=== PATIENT | female | born 1990 ===

== ENCOUNTER 2017-06-16 12:46 | Emergency (ER) | payer MEDICAID ==
[2017-06-16] MEDS ORDERED: Sodium Chloride 0.9% 1,000 ML IV STA (13:49)
[2017-06-16] MEDS ORDERED: Iohexol 240 (50 ml) PO ONE (13:49)
--- NOTE | 2017-06-16 14:11 | ED PDOC ---
HPI: Abdomen Time Seen by Provider: 06/16/17 12:56 Chief Complaint (Nursing): Abdominal Pain Chief Complaint (Provider): Abdominal pain, vomiting, diarrhea History Per: Patient History/Exam Limitations: no limitations Onset/Duration Of Symptoms: Days (2) Outside of [place] travel?: No Current Symptoms Are (Timing): Still Present Location Of Pain/Discomfort: Diffuse Quality Of Discomfort: Sharp, Cramping Associated Symptoms: Nausea, Vomiting, Diarrhea, Loss Of Appetite. denies: Fever, Chills Exacerbating Factors: None Additional Complaint(s): 26 yo female with no medical problems presents with abdominal pain, diarrhea and vomiting which began yesterday. Pt states she has no fever. Pt vomited x 2 and did not attempt to eat today. Past Medical History Reviewed: Historical Data, Nursing Documentation, Vital Signs Vital Signs: Last Vital Signs Temp 97 F L 06/16/17 12:54 Pulse 99 H 06/16/17 12:54 Resp 16 06/16/17 12:54 BP 133/72 06/16/17 12:54 Pulse Ox 97 06/16/17 14:11 - Medical History PMH: No Chronic Diseases - Surgical History Surgical History: No Surg Hx - Family History Family History: States: No Known Family Hx - Living Arrangements Living Arrangements: With Family - Home Medications Home Medications: Ambulatory Orders Medication Instructions Recorded Ciprofloxacin [Cipro] 500 mg PO BID #20 tab 06/16/17 Ondansetron ODT [Zofran ODT] 4 mg PO QID #20 odt 06/16/17 metroNIDAZOLE [Flagyl] 500 mg PO TID #30 tab 06/16/17 - Allergies Allergies/Adverse Reactions: Allergies Allergy/AdvReac Type Severity Reaction Status Date / Time clindamycin Allergy RASH Verified 06/16/17 12:54 Penicillins Allergy RASH Verified 06/16/17 12:54 Review of Systems ROS Statement: Except As Marked, All Systems Reviewed And Found Negative Constitutional: Negative for: Fever, Chills Gastrointestinal: Positive for: Nausea, Vomiting, Abdominal Pain, Diarrhea Physical Exam - Reviewed Nursing Documentation Reviewed: Yes Vital Signs Reviewed: Yes - Physical Exam Appears: Positive for: Well, Non-toxic, No Acute Distress Head Exam: Positive for: ATRAUMATIC, NORMAL INSPECTION, NORMOCEPHALIC Skin: Positive for: Normal Color, Warm, DRY Eye Exam: Positive for: Normal appearance ENT: Positive for: Normal ENT Inspection Neck: Positive for: Normal, Painless ROM Cardiovascular/Chest: Positive for: Regular Rate, Rhythm Respiratory: Positive for: Normal Breath Sounds. Negative for: Accessory Muscle Use, Respiratory Distress Gastrointestinal/Abdominal: Positive for: Soft, Tenderness (RLQ). Negative for : Normal Exam Back: Positive for: Normal Inspection Extremity: Positive for: Normal ROM Neurologic/Psych: Positive for: Alert, Oriented - Laboratory Results Result Diagrams: 06/16/17 14:00 06/16/17 14:00 - ECG O2 Sat by Pulse Oximetry: 97 Medical Decision Making Medical Decision Making: Colitis seen on abdominal CT. PT reports feeling better on re-evaluation. PT given IV antibiotics in ER Disposition - Clinical Impression Clinical Impression: Colitis - Patient ED Disposition Is Patient to be Admitted: No Counseled Patient/Family Regarding: Diagnosis, Need For Followup, Rx Given - Disposition Referrals: Phyllis Short MD [Medical Doctor] - Disposition: Routine/Home Disposition Time: 19:04 Condition: STABLE Prescriptions: Ciprofloxacin [Cipro] 500 mg PO BID #20 tab metroNIDAZOLE [Flagyl] 500 mg PO TID #30 tab Ondansetron ODT [Zofran ODT] 4 mg PO QID #20 odt Instructions: Diarrhea in Adolescents and Adults Forms: [facility] (Yoruba), [facility] ED School/Work Excuse
[2017-06-16 14:21] LABS: BASO % 0.5 % (0.0-2.0); EOS # 0.1 K/uL (0.0-0.7); HEMOGLOBIN 14.5 g/dL (12.0-16.0); LYMPH # 1.1 K/uL (1.0-4.3); LYMPH % 16.8 % (20.0-40.0); MEAN CORPUSCULAR HEMOGLOBIN 33.1 pg (27.0-31.0); MEAN CORPUSCULAR HGB CONC 35.2 g/dL (33.0-37.0); MEAN PLATELET VOLUME 7.6 fl (7.2-11.7); MONO # 0.6 K/uL (0.0-0.8); NEUT # 4.8 K/uL (1.8-7.0); NEUT % 71.7 % (50.0-75.0); NRBC % 0.1 % (0.0-0.0); RBC 4.38 Mil/uL (3.80-5.20); RED CELL DISTRIBUTION WIDTH 12.2 % (11.5-14.5); WHITE BLOOD COUNT 6.6 K/uL (4.8-10.8)
[2017-06-16 14:34] LABS: ALBUMIN 3.8 g/dL (3.5-5.0); ALT/SGPT 48 U/L (9-52); AST/SGOT 25 U/L (14-36); BLOOD UREA NITROGEN 9 mg/dl (7-17); CALCIUM 8.7 mg/dL (8.4-10.2); GFR AFRICAN-AMERICAN > 60; GFR NON-AFRICAN AMERICAN > 60
[2017-06-16] MEDS ORDERED: Iohexol 240 (50 ml) ONE (14:34)
[2017-06-16] MEDS ORDERED: Sodium Chloride 0.9% 100 ML ONE (15:53)
[2017-06-16] MEDS ORDERED: Iohexol 300 100 ML IJ ONE (15:53)
--- NOTE | 2017-06-16 17:35 | CT ---
PROCEDURE: CT Abdomen and Pelvis with contrast HISTORY: RLQ pain, diarrhea, vomiting COMPARISON: None. TECHNIQUE: Following oral and intravenous contrast administration, a CT examination of the abdomen and pelvis performed from the domes of the diaphragms to the symphysis pubis with reformatted datasets provided not only axial but also sagittal and coronal series. Contrast dose: Omnipaque 300, 80 cc Radiation dose: Total exam DLP = 232.97 mGy-cm. This CT exam was performed using one or more of the following dose reduction techniques: Automated exposure control, adjustment of the mA and/or kV according to patient size, and/or use of iterative reconstruction technique. FINDINGS: LOWER THORAX: Unremarkable. LIVER: Unremarkable. No gross lesion or ductal dilatation. GALLBLADDER AND BILE DUCTS: Unremarkable. PANCREAS: Unremarkable. No gross lesion or ductal dilatation. SPLEEN: Unremarkable. ADRENALS: Unremarkable. No mass. Left hemicolon and there is fluid at the rectus KIDNEYS AND URETERS: Unremarkable. No hydronephrosis. No solid mass. VASCULATURE: Unremarkable. No aortic aneurysm. BOWEL: Unremarkable. No obstruction. Mural thickening is not excluded at the rectal vault. Consider potential segmental colitis affecting the transverse and left hemicolon segments however the colon is collapsed and difficult to evaluate. No pericolic reaction or fluid collection related. APPENDIX: Normal appendix. PERITONEUM: Unremarkable. No free fluid. No free air. LYMPH NODES: Unremarkable. No enlarged lymph nodes. BLADDER: Unremarkable. REPRODUCTIVE: Unremarkable. BONES: No acute fracture. OTHER FINDINGS: None. IMPRESSION: Findings suspicious for but not conclusive of segmental colitis affecting the transverse and left hemicolon. Consider infectious or inflammatory causes ischemia or, less likely neoplasm. Limited fluid in the rectum concordant with clinical history of diarrhea. No bowel obstruction appreciable.
[2017-06-16] MEDS ORDERED: Ciprofloxacin IV 400 MG in Sodium Chloride 0.9% 250 ML IV STA (17:49)
[2017-06-16] MEDS ORDERED: metroNIDAZOLE 500mg/100ml NS 100 ML IV ONE (17:49)
[2017-06-16] MEDS ORDERED: Ciprofloxacin 400mg/200ml D5W 400 MG/200 ML BAG IVPB SCH (18:00)
[2017-06-16] MEDS ORDERED: metroNIDAZOLE 500mg/100ml NS 100 ML IVPB ONE (18:34)
[2017-06-16] MEDS ORDERED: Ciprofloxacin 400mg/200ml D5W 400 MG/200 ML BAG IVPB ONE (19:50)
[2017-06-16 20:14] VITALS: BP 100/56; PULSE 71; RESP 18; TEMP 98.2; O2SAT 100
== END 2017-06-16 20:58 | disposition home or self-care (01) ==
LOC: H.ER 12:46
DX: K52.9 Noninfective gastroenteritis and colitis, unspecified (principal); Z88.0 Allergy status to penicillin
CPT/HCPCS: 74177; 80053; 81025; 85025; 96361; 96365; 96375; 99284; J0744; J7040; Q9966; Q9967

== ENCOUNTER 2018-01-15 16:42 | Inpatient (IN) | payer MEDICAID ==
[2018-01-15] MEDS ORDERED: Iohexol 240 (50 ml) PO ONE (17:24)
--- NOTE | 2018-01-15 17:26 | ED PDOC ---
HPI: Abdomen Additional Complaint(s): Pt seen and examined at bedside with attending. Seen @ [facility] 12/30/2017 for UTI and completed treatment for UTI. 27F no PMH or abdominal surgeries p/w acute onset of non-radiating jhonathan- umbilical pain with decrease in appetite, bloating, burping, and minimal flatus being passed. She denies any fevers, chills, nausea, diarrhea, vaginal discharge or dysuria. Last meal 1400 (soup) <Dominga Evangelista - Last Filed: 01/15/18 18:57> <Leigh Thorne - Last Filed: 01/17/18 11:49> Time Seen by Provider: 01/15/18 16:57 Chief Complaint (Nursing): Abdominal Pain Supervising Attending Note - Supervising Attending Note The Documented history was done by the: Physician Tutoring Assistant, Attending Physician The documented physical exam was done by the: Physician Tutoring Assistant, Attending Physician - Attestation: I have personally seen and examined this patient.: Yes I have fully participated in the care of the patient.: Yes I have reviewed all pertinent clinical information: Yes <Leigh Thorne - Last Filed: 01/17/18 11:49> Past Medical History Vital Signs: Last Vital Signs Temp 36.8 C 01/15/18 16:48 Pulse 103 H 01/15/18 16:48 Resp 16 01/15/18 16:48 BP 107/75 01/15/18 16:48 Pulse Ox 97 01/15/18 16:48 - Medical History PMH: No Chronic Diseases - Family History Family History: States: Unknown Family Hx <Dominga Evangelista - Last Filed: 01/15/18 18:57> Vital Signs: Last Vital Signs Temp 98.2 F 01/15/18 16:48 Pulse 103 H 01/15/18 16:48 Resp 16 01/15/18 16:48 BP 107/75 01/15/18 16:48 Pulse Ox 97 01/15/18 18:57 <Leigh Thorne - Last Filed: 01/17/18 11:49> - Home Medications Home Medications: Ambulatory Orders Medication Instructions Recorded RX: No Known Home Med 01/16/18 - Allergies Allergies/Adverse Reactions: Allergies Allergy/AdvReac Type Severity Reaction Status Date / Time clindamycin Allergy RASH Verified 01/16/18 00:11 Penicillins Allergy RASH Verified 01/16/18 00:11 Review of Systems ROS Statement: Except As Marked, All Systems Reviewed And Found Negative Gastrointestinal: Positive for: Abdominal Pain Genitourinary Female: Negative for: Dysuria <OtisDominga sol - Last Filed: 01/15/18 18:57> Physical Exam - Reviewed Vital Signs Reviewed: Yes - Physical Exam Appears: Positive for: Non-toxic Head Exam: Positive for: ATRAUMATIC Skin: Positive for: Normal Color, Warm, Dry Eye Exam: Positive for: Normal appearance, EOMI ENT: Positive for: Normal ENT Inspection Neck: Positive for: Supple Cardiovascular/Chest: Positive for: Tachycardia. Negative for: Murmur Respiratory: Positive for: Normal Breath Sounds. Negative for: Crackles, Rales, Wheezing Gastrointestinal/Abdominal: Positive for: Bowel Sounds (hypoactive), Soft, Tenderness (diffusely tender, Rovsing's positive), Distended (mildly), Guarding (voluntary). Negative for: Rebound Extremity: Positive for: Normal ROM Lymphatic: Negative for: Adenopathy Neurologic/Psych: Positive for: Alert, Oriented <TonjaDominga - Last Filed: 01/15/18 18:57> - Laboratory Results Result Diagrams: 01/15/18 17:35 01/15/18 17:35 - ECG O2 Sat by Pulse Oximetry: 97 <OtisswetaDominga - Last Filed: 01/15/18 18:57> - Laboratory Results Result Diagrams: 01/16/18 06:30 01/16/18 10:46 <Leigh Thorne - Last Filed: 01/17/18 11:49> Medical Decision Making Medical Decision Making: Appendicitis vs. ovarian cyst vs. ovarian torsion vs. IBD - CBC, CMP, PT/INR, PTT, U dip/U preg, - CT abd/pelvis, TV ultrasound - NPO/IVF - Morphine CBC shows mild leukocytosis and left shift. CMP grossly WNL Coags WNL U dip: negative U preg: negative <TonjaDominga - Last Filed: 01/15/18 18:57> Medical Decision Makin US Obstetrical FINDINGS: UTERUS: Unremarkable. No myometrial mass. measures 5.3 x 2.7 x 3.9 cm. ENDOMETRIUM: 9 mm and unremarkable. CERVIX: Closed. Unremarkable. OVARIES: Unremarkable. No mass. right ovary measures 2.4 x 1.8 x 2.7 cm and left ovary 2.3 x 1.8 x 1.5 cm. there is a 2 mm echogenic focus within the left ovary, possibly a calcification. FREE FLUID: No free fluid. IMPRESSION: Examination within normal limits. 2039 CT Abdomen/Pelvis FINDINGS: LUNG BASES: The lung bases appear clear. No pleural effusions are seen. LIVER: Unremarkable. GALLBLADDER AND BILE DUCTS: The gallbladder appears within normal limits. No radioopaque gallstones are seen. No biliary ductal dilatation is evident. PANCREAS: Unremarkable. SPLEEN: Unremarkable. ADRENAL GLANDS: Unremarkable. KIDNEYS, URETERS, AND BLADDER: The kidneys appear within normal limits. There is no hydronephrosis or hydroureter. No urinary calculi are seen. STOMACH AND BOWEL: Unremarkable appearance of the stomach and bowel. No evidence of bowel obstruction. No evidence suggesting enteritis or colitis. APPENDIX: Mild dilatation of the appendix to 8 mm. Early acute appendicitis is not excluded. PERITONEUM: No free fluid. No free air. LYMPH NODES: No lymphadenopathy is evident. VASCULATURE: No evidence of abdominal aortic aneurysm. BONES: No aggressive appearing osseous lesion. No acute osseous pathology evident. IMPRESSION: Mild dilatation of the appendix to 8 mm. Early acute appendicitis is not excluded. Patient informed of CT findings and expresses understanding. 2100 Case discussed with surgical garment assembly supervisor; Dr. Abdi on surgical consult. Patient to be evaluated in ER by surgical garment assembly supervisor Dr. Paige Sherwood. [address] Stevenson, patient to be admitted under his service. Scribe Attestation: Documented by Lorena Quarles, acting as a scribe for Leigh Thorne MD. Provider Scribe Attestation: All medical record entries made by the Scribe were at my direction and personally dictated by me. I have reviewed the chart and agree that the record accurately reflects my personal performance of the history, physical exam, medical decision making, and the department course for this patient. I have also personally directed, reviewed, and agree with the discharge instructions and disposition. <Leigh Thorne - Last Filed: 01/17/18 11:49> Disposition - Patient ED Disposition Is Patient to be Admitted: Transfer of Care Discussed With DrPrabhu: Leigh Thorne Doctor Will See Patient In The: Hospital Counseled Patient/Family Regarding: Need For Followup - Disposition Disposition Time: 18:53 <Dominga Evangelista - Last Filed: 01/15/18 18:57> Counseled Patient/Family Regarding: Studies Performed, Diagnosis - Disposition Disposition Time: 22:00 - Pt Status Changed To: Hospital Disposition Of: Inpatient - Admit Certification Admit to Inpatient:: After my assessment, the patient will require hospitalization for at least two midnights. This is because of the severity of symptoms shown, intensity of services needed, and/or the medical risk in this patient being treated as an outpatient. - POA Present On Arrival: None <Leigh Thorne - Last Filed: 01/17/18 11:49> - Clinical Impression Clinical Impression: Appendicitis - Disposition Condition: FAIR
[2018-01-15] MEDS ORDERED: Iohexol 240 (50 ml) ONE (17:30)
[2018-01-15] MEDS ORDERED: Sodium Chloride 0.9% 1,000 ML IV STA (17:32)
[2018-01-15] MEDS ORDERED: Morphine 4 MG/ML VIAL ONE ×3 (17:41→22:09)
[2018-01-15 17:53] LABS: BASO # 0.1 K/uL (0.0-0.2); BASO % 0.4 % (0.0-2.0); EOS # 0.1 K/uL (0.0-0.7); EOS % 1.1 % (0.0-4.0); HEMOGLOBIN 12.9 g/dL (12.0-16.0); LYMPH # 1.6 K/uL (1.0-4.3); LYMPH % 12.8 % (20.0-40.0); MEAN CELL VOLUME 95.2 fl (81.0-99.0); MEAN CORPUSCULAR HEMOGLOBIN 31.5 pg (27.0-31.0); MEAN PLATELET VOLUME 7.8 fl (7.2-11.7); MONO % 7.7 % (0.0-10.0); RBC 4.11 Mil/uL (3.80-5.20); RED CELL DISTRIBUTION WIDTH 12.1 % (11.5-14.5); WHITE BLOOD COUNT 12.8 K/uL (4.8-10.8)
[2018-01-15 17:58] LABS: INR 1.1; PROTHROMBIN TIME 12.4 Seconds (9.8-13.1)
[2018-01-15 18:01] LABS: PARTIAL THROMBOPLASTIN TIME 31.1 Seconds (25.6-37.1)
[2018-01-15 18:05] LABS: ALB/GLOB RATIO 1.1 (1.0-2.1); ALBUMIN 4.1 g/dL (3.5-5.0); ALT/SGPT 38 U/L (9-52); AST/SGOT 29 U/L (14-36); BLOOD UREA NITROGEN 8 mg/dl (7-17); CALCIUM 8.7 mg/dL (8.4-10.2); GFR NON-AFRICAN AMERICAN > 60
[2018-01-15] MEDS ORDERED: Ciprofloxacin 400mg/200ml D5W 400 MG/200 ML BAG IVPB STA (18:46)
[2018-01-15] MEDS ORDERED: Iohexol 300 100 ML IJ ONE (18:50)
[2018-01-15] MEDS ORDERED: Sodium Chloride 0.9% 50 ML IV ONE (18:51)
[2018-01-15] MEDS ORDERED: metroNIDAZOLE 500mg/100ml NS 100 ML IVPB SCH (19:00)
[2018-01-15] MEDS ORDERED: metroNIDAZOLE 500mg/100ml NS 100 ML IVPB ONE (19:21)
[2018-01-15] MEDS ORDERED: Ciprofloxacin 400mg/200ml D5W 400 MG/200 ML BAG IVPB ONE (19:22)
--- NOTE | 2018-01-15 19:31 | US ---
Date of service: 01/15/2018 HISTORY: severe abd pain COMPARISON: None available. TECHNIQUE: Endovaginal ultrasound examination of the pelvis. FINDINGS: UTERUS: Measures 5.3 x 3.9 x 2.7 cm. Retroverted uterus normal in size and appearance. No fibroid or other mass lesion seen. ENDOMETRIUM: Measures 8.5 mm in diameter. 8.5 CERVIX: No cervical abnormality identified. RIGHT OVARY: Measures 2.4 x 2.7 x 1.8 cm. No solid mass. Normal flow. LEFT OVARY: Measures 2.3 x 1.5 x 1.8 cm. No solid mass. Normal flow. There is small echogenic focus in the left ovary measures 0.2 x 0.23 x 0.2 centimeter may represent small calcification FREE FLUID: No significant free fluid noted. OTHER FINDINGS: None. IMPRESSION: No evidence of acute pathology. Retroverted uterus. Prominent follicles in both ovaries. Blood flow appreciated at both ovaries.
[2018-01-15] MEDS ORDERED: Morphine 4 MG/ML VIAL IVP STA (20:38)
--- NOTE | 2018-01-15 21:57 | CP.PCM.CON ---
History of Present Illness - History of Present Illness History of Present Illness: General Surgery Consult note for Dr. Abdi consulted for Appendicitis Patient is a 27 yr old female with no PMH who presents to [facility] ED with periumbilical abdominal pain and nausea since 2 am this morning. She describes the pain as constant, sharp and worsened by movement. LNMP 01/06 on BCP, test negative. She otherwise denies f/c, vomiting, COLMENARES, CP, SOB and extremity pain or weakness. Review of Systems - Review of Systems All systems: reviewed and no additional remarkable complaints except (as per HPI) Past Patient History - Past Social History Smoking Status: Never Smoked - PSYCHIATRIC Hx Substance Use: No Meds Allergies/Adverse Reactions: Allergies Allergy/AdvReac Type Severity Reaction Status Date / Time clindamycin Allergy RASH Verified 06/16/17 12:54 Penicillins Allergy RASH Verified 06/16/17 12:54 - Medications Medications: Current Medications Dextrose/Sodium Chloride (Dextrose 5%-0.9% Ns 500 Ml) 1,000 mls @ 100 mls/hr IV .Q10H WILDER Last Admin: 01/15/18 19:15 Dose: 100 mls/hr Metronidazole (Flagyl 500mg/100ml Ns) 100 mls @ 100 mls/hr IVPB ONCE WILDER; Protocol Last Admin: 01/15/18 19:22 Dose: 100 mls/hr Physical Exam - Constitutional Appears: Well, Toxic, No Acute Distress - Head Exam Head Exam: ATRAUMATIC, NORMOCEPHALIC - Eye Exam Eye Exam: EOMI - ENT Exam ENT Exam: Mucous Membranes Moist - Respiratory Exam Respiratory Exam: NORMAL BREATHING PATTERN - Cardiovascular Exam Cardiovascular Exam: REGULAR RHYTHM - GI/Abdominal Exam GI & Abdominal Exam: Guarding (RLQ and periumbilical), Rebound, Tenderness (RLQ and periumbilical). absent: Distended Additional comments: rovsing sign positive - Extremities Exam Extremities exam: Positive for: pedal pulses present. Negative for: calf tenderness, pedal edema - Back Exam Back exam: absent: CVA tenderness (L), CVA tenderness (R) - Neurological Exam Neurological exam: Alert, Oriented x3 - Psychiatric Exam Psychiatric exam: Normal Affect, Normal Mood - Skin Skin Exam: Dry, Intact, Normal Color, Warm Results - Vital Signs Recent Vital Signs: Last Vital Signs Temp 98.2 F 01/15/18 16:48 Pulse 103 H 01/15/18 16:48 Resp 16 01/15/18 16:48 BP 107/75 01/15/18 16:48 Pulse Ox 97 01/15/18 18:57 - Labs Result Diagrams: 01/15/18 17:35 01/15/18 17:35 Labs: Laboratory Results - last 24 hr 01/15/18 01/15/18 01/15/18 17:35 17:35 17:35 WBC 12.8 H D RBC 4.11 Hgb 12.9 Hct 39.1 MCV 95.2 MCH 31.5 H MCHC 33.0 RDW 12.1 Plt Count 287 MPV 7.8 Neut % (Auto) 78.0 H Lymph % (Auto) 12.8 L Irwin % (Auto) 7.7 Eos % (Auto) 1.1 Baso % (Auto) 0.4 Neut # (Auto) 10.0 H Lymph # (Auto) 1.6 Irwin # (Auto) 1.0 H Eos # (Auto) 0.1 Baso # (Auto) 0.1 PT 12.4 INR 1.1 APTT 31.1 Sodium 139 Potassium 3.6 Chloride 104 Carbon Dioxide 24 Anion Gap 15 BUN 8 Creatinine 0.4 L Est GFR ( Amer) > 60 Est GFR (Non-Af Amer) > 60 Random Glucose 114 H Calcium 8.7 Magnesium 1.8 Total Bilirubin 0.6 AST 29 ALT 38 Alkaline Phosphatase 58 Total Protein 7.7 Albumin 4.1 Globulin 3.6 Albumin/Globulin Ratio 1.1 Assessment & Plan - Assessment and Plan (Free Text) Assessment: 27 yr old female with appendicitis Plan: NPO IVF c/w cipro flagyl repeat labs in am booked for OR tomorrow pain control zofran for nausea tylenol PRN for fever d/w Dr. Trinidad Sherwood, PGY 1 - Date & Time Date: 01/15/18 Time: 21:45
[2018-01-15] MEDS ORDERED: Oxycodone/Acetaminophen 5/325 mg Tab PO PRN (22:01)
[2018-01-15] MEDS ORDERED: Morphine 4 MG/ML VIAL IVP PRN (22:01)
[2018-01-15] MEDS ORDERED: Ciprofloxacin 400mg/200ml D5W 400 MG/200 ML BAG IVPB SCH (22:15)
[2018-01-15] MEDS ORDERED: Ciprofloxacin 200mg/100ml D5W 100 ML IVPB SCH (22:15)
[2018-01-15] MEDS ORDERED: Dextrose 5%/Lactated Ringer's 1,000 ML IV SCH (22:15)
[2018-01-16] MEDS: Dextrose 5%/0.9% NS 1,000 ML IV SCH ×2 (04:07→14:03)
[2018-01-16] MEDS: metroNIDAZOLE 500mg/100ml NS 100 ML IVPB SCH ×2 (04:09→11:27)
[2018-01-16 07:07] LABS: BASO % 0.3 % (0.0-2.0); EOS # 0.3 K/uL (0.0-0.7); EOS % 5.1 % (0.0-4.0); HEMOGLOBIN 11.9 g/dL (12.0-16.0); LYMPH # 2.1 K/uL (1.0-4.3); LYMPH % 30.6 % (20.0-40.0); MEAN CORPUSCULAR HEMOGLOBIN 32.9 pg (27.0-31.0); MEAN CORPUSCULAR HGB CONC 34.3 g/dL (33.0-37.0); MEAN PLATELET VOLUME 8.3 fl (7.2-11.7); MONO # 0.7 K/uL (0.0-0.8); MONO % 10.4 % (0.0-10.0); NEUT # 3.6 K/uL (1.8-7.0); NEUT % 53.6 % (50.0-75.0); RBC 3.6 Mil/uL (3.80-5.20); RED CELL DISTRIBUTION WIDTH 12.3 % (11.5-14.5); WHITE BLOOD COUNT 6.8 K/uL (4.8-10.8)
[2018-01-16 07:20] LABS: INR 1.2; PROTHROMBIN TIME 13.4 Seconds (9.8-13.1)
[2018-01-16 07:23] LABS: PARTIAL THROMBOPLASTIN TIME 31.8 Seconds (25.6-37.1)
[2018-01-16 07:29] LABS: ALB/GLOB RATIO 1.1 (1.0-2.1); ALBUMIN 3.4 g/dL (3.5-5.0); ALT/SGPT 33 U/L (9-52); AST/SGOT 21 U/L (14-36); BLOOD UREA NITROGEN 4 mg/dl (7-17); CALCIUM 8.3 mg/dL (8.4-10.2); GFR NON-AFRICAN AMERICAN > 60
--- NOTE | 2018-01-16 07:57 | CP.PCM.HP ---
History of Present Illness - History of Present Illness History of Present Illness: 27 YR OLD FEMALE ADMITTED BECAUSE OF PERIUMBILICAL PAIN WITH NAUSEA X 1 DAY.SHE WAS DIAGNOSED WITH ACUTE APPENDICITIS AND SCHEDULED FOR SURGERY TODAY.PAST MEDICAL HISTORY OF TONSILLECTOMY AND PCN/CLINDAMYCIN ALLERGY. Present on Admission - Present on Admission Any Indicators Present on Admission: No Past Patient History - Past Medical History & Family History Past Medical History?: No - Past Social History Smoking Status: Never Smoked - CARDIAC Hx Cardiac Disorders: No Hx Angina: No Hx Atrial Fibrillation: No Hx Cardia Arrhythmia: No Hx Circulatory Problems: No Hx Congestive Heart Failure: No Hx Heart Attack: No Hx Heart Murmur: No Hx Heart Transplant: No Hx Hypercholesterolemia: No Hx Hypertension: No Hx Hypotension: No Hx Internal Defibrillator: No Hx Mitral Valve Prolapse: No Hx Pacemaker: No Hx Peripheral Edema: No Hx Peripheral Vascular Disease: No - PULMONARY Hx Respiratory Disorders: No Hx Asthma: No Hx Bronchitis: No Hx Chronic Obstructive Pulmonary Disease (COPD): No Hx Emphysema: No Hx Lung Cancer: No Hx Pneumonia: No Hx Pulmonary Edema: No Hx Pulmonary Embolism: No Hx Respiratory Aspiration: No Hx Respiratory Tract Infection: No Hx Sleep Apnea: No Hx Tuberculosis: No - NEUROLOGICAL Hx Neurological Disorder: No Hx Alzheimer's Disease: No HX Cerebrovascular Accident: No Hx Dementia: No Hx Dizziness: No Hx Meningitis: No Hx Migraine: No Hx Multiple Sclerosis: No Hx Paralysis: No Hx Parkinson's Disease: No Hx Seizures: No Hx Syncope: No Hx Transient Ischemic Attacks (TIA): No Hx Vertigo: No - HEENT Hx HEENT Problems: No Hx Blind: No Hx Cataracts: No Hx Deafness: No Hx Difficulty Chewing: No Hx Epistaxis: No Hx Glaucoma: No Hx Macular Degeneration: No Hx Sinusitis: No Other/Comment: Had Lasik Surgery for vision - RENAL Hx Chronic Kidney Disease: No Hx Dialysis: No Hx Kidney Stones: No Hx Neurogenic Bladder: No Hx Pyelonephritis: No Hx Renal (Kidney) Cancer: No Hx Renal Failure: No - ENDOCRINE/METABOLIC Hx Endocrine Disorders: No Hx Adrenal Cancer: No Hx Diabetes Insipidus: No Hx Diabetes Mellitus Type 1: No Hx Diabetes Mellitus Type 2: No Hx Hyperthyroidism: No Hx Hypothyroidism: No Hx Systemic Lupus Erythematosus: No - HEMATOLOGICAL/ONCOLOGICAL Hx Blood Disorders: No Hx AIDS: No Hx Anemia: No Hx Blood Transfusions: No Hx Blood Transfusion Reaction: No Hx Bruising: No Hx Cancer: No Hx Chemotherapy: No Hx Cirrhosis: No Hx Gum Bleeding: No Hx Hemophilia: No Hx Hepatitis A: No Hx Hepatitis B: No Hx Hepatitis C: No Hx Human Immunodeficiency Virus (HIV): No Hx Leukemia: No Hx Metastesis: No Hx Shingles: No Hx Sickle Cell Disease: No Hx Unexplained Bleeding: No Hx von Willebrand's Disease: No - INTEGUMENTARY Hx Dermatological Problems: No Hx Basil Cell: No Hx Wolf: No Hx Cellulitis: No Hx Eczema: No Hx Melanoma: No Hx Psoriasis: No Hx Squamous Cell: No - MUSCULOSKELETAL/RHEUMATOLOGICAL Hx Musculoskeletal Disorders: No Hx Arthritis: No Hx Back Pain: No Hx Degenerative Joint Disease: No Hx Falls: No Hx Fractures: No Hx Gout: No Hx Herniated Disk: No Hx Myasthenia Gravis: No Hx Osteoarthritis: No Hx Osteomyelitis: No Hx Osteoporosis: No Hx Rhabdomyolysis: No Hx Rheumatoid Arthritis: No Hx Spinal Stenosis: No Hx Unsteady Gait: No - GASTROINTESTINAL Hx Gastrointestinal Disorders: No Hx Bowel Surgery: No Hx Clostridium Difficile: No Hx Colitis: No Hx Colostomy: No Hx Constipation: No Hx Crohn's Disease: No Hx Diarrhea: No Hx Diverticulitis: No Hx Esophageal Varices: No Hx Fatty Liver Disease: No Hx Gall Bladder Disease: No Hx Gastritis: No Hx Gastroesophageal Reflux: No Hx Hemorrhoids: No Hx Ileostomy: No Hx Irritable Bowel: No Hx Liver Failure: No Hx Nausea: No Hx Pancreatitis: No HX Swallowing Problems: No Hx Ulcer: No Hx Vomiting: No - GENITOURINARY/GYNECOLOGICAL Hx Genitourinary Disorders: No Hx Bladder Cancer: No Hx Bladder Stone: No Hx Cervical Cancer: No Hx Hematuria: No Hx Incontinence: No Hx Ovarian Cancer: No Hx Postmenopausal Bleeding: No Hx Reproductive Disorders: No Hx Sexually Transmitted Disorders: No Hx Uterine Cancer: No Hx Urinary Tract Infection: Yes (last month and treated) - PSYCHIATRIC Hx Substance Use: No - SURGICAL HISTORY Hx Surgeries: Yes Hx Abdominal Aortic Aneurysm Repair: No Hx Amputation: No Hx Angiogram: No Hx Angioplasty: No Hx Appendectomy: No Hx Arteriovenous Shunt: No Hx Arthroscopy: No Hx Bile Duct Stent: No Hx Breast Biopsy: No Hx Cataract Extraction: No Hx Cardiac Catheterization: No Hx Carotid Endarterectomy: No Hx Section: No Hx Cholecystectomy: No Hx Coronary Artery Bypass Graft: No Hx Coronary Stent: No Hx Dilation and Curettage: No Hx Eye Surgery: Yes (Lasik Surgery) Hx Femoral-Popliteal Bypass Graft: No Hx Gastric Bypass Surgery: No Hx Herniorrhaphy: No Hx Hysterectomy: No Hx Joint Replacement: No Hx Kidney Transplant: No Hx Liver Transplant: No Hx Mastectomy: No Hx Musculoskeletal Surgery: No Hx Open Heart Surgery: No Hx Open Reduction Internal Fixation: No Hx Orthopedic Surgery: No Hx Parathyroidectomy: No Hx Penile Implant: No Hx Pulmonary Surgery: No Hx Splenectomy: No Hx Thyroidectomy: No Hx Tonsillectomy: Yes Hx Tubal Ligation: No Hx Valve Replacement: No Hx Vascular Surgery: No Hx Vascular Access Device: No - ANESTHESIA Hx Anesthesia: Yes Hx Anesthesia Reactions: No Hx Malignant Hyperthermia: No Has any member of the family had a problem w/ anesthesia?: No Meds Allergies/Adverse Reactions: Allergies Allergy/AdvReac Type Severity Reaction Status Date / Time clindamycin Allergy RASH Verified 01/16/18 00:11 Penicillins Allergy RASH Verified 01/16/18 00:11 Physical Exam - Constitutional Appears: Well, In Acute Distress - Head Exam Head Exam: ATRAUMATIC, NORMAL INSPECTION, NORMOCEPHALIC - Eye Exam Eye Exam: EOMI, Normal appearance, PERRL Pupil Exam: NORMAL ACCOMODATION, PERRL - ENT Exam ENT Exam: Mucous Membranes Moist, Normal Exam - Neck Exam Neck exam: Positive for: Normal Inspection - Respiratory Exam Respiratory Exam: Clear to Auscultation Bilateral, NORMAL BREATHING PATTERN - Cardiovascular Exam Cardiovascular Exam: REGULAR RHYTHM - GI/Abdominal Exam GI & Abdominal Exam: Normal Bowel Sounds, Soft, Tenderness Additional comments: DIFFUSE TENDERNESS WITH RLQ PRONOUNCED TENDERNESS - Rectal Exam Rectal Exam: NORMAL INSPECTION - Extremities Exam Extremities exam: Positive for: normal inspection - Back Exam Back exam: NORMAL INSPECTION - Neurological Exam Neurological exam: Alert, CN II-XII Intact, Normal Gait, Oriented x3, Reflexes Normal - Psychiatric Exam Psychiatric exam: Normal Affect, Normal Mood - Skin Skin Exam: Dry, Intact, Normal Color, Warm Results - Vital Signs Recent Vital Signs: Last Vital Signs Temp 98.1 F 01/16/18 05:38 Pulse 78 01/16/18 05:38 Resp 20 01/16/18 05:38 BP 98/54 L 01/16/18 05:38 Pulse Ox 99 01/16/18 05:38 - Labs Result Diagrams: 01/16/18 06:30 01/16/18 06:30 Labs: Laboratory Results - last 24 hr 01/15/18 01/15/18 01/15/18 17:35 17:35 17:35 WBC 12.8 H D RBC 4.11 Hgb 12.9 Hct 39.1 MCV 95.2 MCH 31.5 H MCHC 33.0 RDW 12.1 Plt Count 287 MPV 7.8 Neut % (Auto) 78.0 H Lymph % (Auto) 12.8 L Yell % (Auto) 7.7 Eos % (Auto) 1.1 Baso % (Auto) 0.4 Neut # (Auto) 10.0 H Lymph # (Auto) 1.6 Yell # (Auto) 1.0 H Eos # (Auto) 0.1 Baso # (Auto) 0.1 PT 12.4 INR 1.1 APTT 31.1 Sodium 139 Potassium 3.6 Chloride 104 Carbon Dioxide 24 Anion Gap 15 BUN 8 Creatinine 0.4 L Est GFR ( Amer) > 60 Est GFR (Non-Af Amer) > 60 Random Glucose 114 H Calcium 8.7 Phosphorus Magnesium 1.8 Total Bilirubin 0.6 AST 29 ALT 38 Alkaline Phosphatase 58 Total Protein 7.7 Albumin 4.1 Globulin 3.6 Albumin/Globulin Ratio 1.1 01/16/18 01/16/18 01/16/18 06:30 06:30 06:30 WBC 6.8 RBC 3.60 L Hgb 11.9 L Hct 34.6 MCV 96.0 MCH 32.9 H MCHC 34.3 RDW 12.3 Plt Count 253 MPV 8.3 Neut % (Auto) 53.6 Lymph % (Auto) 30.6 Yell % (Auto) 10.4 H Eos % (Auto) 5.1 H Baso % (Auto) 0.3 Neut # (Auto) 3.6 Lymph # (Auto) 2.1 Yell # (Auto) 0.7 Eos # (Auto) 0.3 Baso # (Auto) 0.0 PT 13.4 H INR 1.2 APTT 31.8 Sodium 140 Potassium 3.3 L Chloride 108 H Carbon Dioxide 24 Anion Gap 11 BUN 4 L Creatinine 0.5 L Est GFR ( Amer) > 60 Est GFR (Non-Af Amer) > 60 Random Glucose 107 H Calcium 8.3 L Phosphorus 3.6 Magnesium 1.8 Total Bilirubin 0.4 AST 21 ALT 33 Alkaline Phosphatase 49 Total Protein 6.6 Albumin 3.4 L Globulin 3.2 Albumin/Globulin Ratio 1.1 Assessment & Plan - Assessment and Plan (Free Text) Assessment: ACUTE APPENDICITIS HYPOKALEMIA Plan: IV KCL MEDICALLY CLEARED FOR SURGERY - Date & Time Date: 01/16/18 Time: 08:00
[2018-01-16] MEDS ORDERED: Potassium CL 10 MEQ/50 ML 50 ML IVPB ONE (08:00)
[2018-01-16 11:08] LABS: BLOOD UREA NITROGEN 4 mg/dl (7-17); CALCIUM 8.3 mg/dL (8.4-10.2); GFR NON-AFRICAN AMERICAN > 60
--- NOTE | 2018-01-16 13:27 | CT ---
Date of service: 01/15/2018 PROCEDURE: CT Abdomen and Pelvis with contrast HISTORY: abdominal pain COMPARISON: 06/16/2017 TECHNIQUE: Contrast dose: 85 mL Omnipaque 300 Radiation dose: Total exam DLP = 220.24 mGy-cm. This CT exam was performed using one or more of the following dose reduction techniques: Automated exposure control, adjustment of the mA and/or kV according to patient size, and/or use of iterative reconstruction technique. FINDINGS: LOWER THORAX: Unremarkable. LIVER: Normal size, contour and attenuation. There is a circumscribed region of low attenuation in the medial segment of the left hepatic lobe abutting the fissure for the ligamentum teres. This is a normal variant due to variant venous drainage. No mass. No biliary dilatation. GALLBLADDER AND BILE DUCTS: Unremarkable. PANCREAS: Unremarkable. No gross lesion or ductal dilatation. SPLEEN: Unremarkable. ADRENALS: Unremarkable. No mass. KIDNEYS AND URETERS: Unremarkable. No hydronephrosis. No solid mass. VASCULATURE: Unremarkable. No aortic aneurysm. No aortic atherosclerotic calcification or mural plaque present. BOWEL: No bowel obstruction. APPENDIX: The appendix is distended with fluid demonstrates thickened enhancing hardwick. It measures up to 8 mm in diameter. There is stranding of the adjacent fat at the base of the appendix and adjacent to the cecum on series 3, images 96 through 103. Findings consistent with acute appendicitis. No periappendiceal abscess. No free intraperitoneal air.. PERITONEUM: Trace fluid in the pelvis. No pneumoperitoneum LYMPH NODES: Unremarkable. No enlarged lymph nodes. BLADDER: Unremarkable. REPRODUCTIVE: Normal uterus. BONES: No acute fracture. OTHER FINDINGS: None. IMPRESSION: Findings consistent with acute uncomplicated appendicitis. No periappendiceal abscess or free intraperitoneal air. No other significant abnormality. The preliminary findings for this examination were reported by [facility] at 8:34 p.m. on 01/15/2018. There is concurrence of this report with the preliminary findings.
[2018-01-16] MEDS ORDERED: Propofol 10 mg/ml Inj (20 ML) ONE (14:19)
[2018-01-16] MEDS ORDERED: Midazolam 2 MG/2 ML VIAL ONE (14:19)
[2018-01-16] MEDS ORDERED: Neostigmine 1:1000 (1 mg/ml) Inj ONE (14:20)
[2018-01-16] MEDS ORDERED: Lidocaine 4% (Laryng-O-Jet) Kit MM ONE (14:20)
[2018-01-16] MEDS ORDERED: Succinylcholine 200 mg/10 ml Inj IV ONE (14:20)
[2018-01-16] MEDS ORDERED: Rocuronium 10 mg/ml (5 ml) ONE (14:20)
[2018-01-16] MEDS ORDERED: Lidocaine 1% Inj (20ml) ONE (14:45)
[2018-01-16] MEDS ORDERED: Bupivacaine 0.5% Inj(30mL) ONE (14:45)
[2018-01-16] MEDS ORDERED: Lactated Ringer's 1,000 ML IV ONE (15:12)
[2018-01-16] MEDS ORDERED: Dexamethasone 4 mg/1 ml ONE (15:23)
[2018-01-16] MEDS ORDERED: Cellulose Hemostat 2X3 Sheet TP ONE (16:04)
[2018-01-16] MEDS ORDERED: Oxycodone/Acetaminophen 5/325 mg Tab PO PRN (16:33)
--- NOTE | 2018-01-16 16:40 | PCM.SURG1 ---
Surgeon's Initial Post Op Note - Surgeon's Notes Surgeon: Trinidad Sash Finisher: Isabella PGY4, Maverick PGY3 Type of Anesthesia: General Endo, Local Pre-Operative Diagnosis: Acute appendicitis Operative Findings: Acutely inflamed appendix Post-Operative Diagnosis: same Operation Performed: Laparoscopic appendectomy Specimen/Specimens Removed: Appendix Estimated Blood Loss: EBL {In ML}: 10 Blood Products Given: N/A Drains Used: No Drains Post-Op Condition: Good Date of Surgery/Procedure: 01/16/18 Time of Surgery/Procedure: 16:40
[2018-01-16] MEDS ORDERED: Dexamethasone 4 mg/1 ml IVP PRN (16:41)
[2018-01-16] MEDS ORDERED: HYDROmorphone 0.5 mg/0.5 ml ISec IVP PRN (16:41)
[2018-01-16] MEDS ORDERED: Sodium Chloride 0.9% 1,000 ML IV SCH (16:45)
[2018-01-16] MEDS ORDERED: Lactated Ringer's 1,000 ML IV SCH (16:45)
[2018-01-17 05:08] VITALS: O2SAT 98
--- NOTE | 2018-01-17 09:41 | CP.PCM.PN ---
Subjective - Date & Time of Evaluation Date of Evaluation: 01/17/18 Time of Evaluation: 09:41 - Subjective Subjective: S/P APPENDECTOMY PASSING GAS TOLERATING REGULAR DIET STILL HAS SOME ABDOMINAL PAINS Objective - Vital Signs/Intake and Output Vital Signs (last 24 hours): Temp Pulse Resp BP Pulse Ox 97.9 F 74 20 102/65 98 01/17/18 05:00 01/17/18 05:00 01/17/18 05:00 01/17/18 05:00 01/17/18 05:00 Intake and Output: 01/17/18 01/17/18 06:59 18:59 Intake Total 2400 Balance 2400 - Medications Medications: Current Medications Sodium Chloride (Sodium Chloride 0.9%) 1,000 mls @ 75 mls/hr IV .[id number] WILDER Stop: 01/17/18 16:41 Last Admin: 01/17/18 05:21 Dose: 75 mls/hr Lactated Ringer's (Lactated Ringer's) 1,000 mls @ 100 mls/hr IV .Q10H WILDER - Labs Labs: 01/16/18 06:30 01/16/18 10:46 PT 13.4 Seconds (9.8-13.1) H 01/16/18 06:30 INR 1.2 01/16/18 06:30 APTT 31.8 Seconds (25.6-37.1) 01/16/18 06:30 - Constitutional Appears: No Acute Distress - Head Exam Head Exam: ATRAUMATIC, NORMAL INSPECTION, NORMOCEPHALIC - Eye Exam Eye Exam: EOMI, Normal appearance, PERRL Pupil Exam: NORMAL ACCOMODATION, PERRL - ENT Exam ENT Exam: Mucous Membranes Moist, Normal Exam - Neck Exam Neck Exam: Full ROM, Normal Inspection. absent: Lymphadenopathy - Respiratory Exam Respiratory Exam: Clear to Ausculation Bilateral, NORMAL BREATHING PATTERN - Cardiovascular Exam Cardiovascular Exam: REGULAR RHYTHM, +S1, +S2. absent: Murmur - GI/Abdominal Exam GI & Abdominal Exam: Soft, Tenderness, Normal Bowel Sounds - Rectal Exam Rectal Exam: NORMAL INSPECTION - Extremities Exam Extremities Exam: Full ROM, Normal Capillary Refill, Normal Inspection. absent: Joint Swelling, Pedal Edema - Back Exam Back Exam: NORMAL INSPECTION - Neurological Exam Neurological Exam: Alert, Awake, CN II-XII Intact, Normal Gait, Oriented x3 - Psychiatric Exam Psychiatric exam: Normal Affect, Normal Mood - Skin Skin Exam: Dry, Intact, Normal Color, Warm Assessment and Plan - Assessment and Plan (Free Text) Assessment: S/P APPENDECTOMY HYPOKALEMIA--RESOLVED Plan: DISCHARGE HOME IF CLEARED BY SURGERY
--- NOTE | 2018-01-17 11:14 | CP.PCM.PN ---
Subjective - Date & Time of Evaluation Date of Evaluation: 01/17/18 Time of Evaluation: 11:12 - Subjective Subjective: Surgery: Dr. Abdi Pt seen and examined. No acute events overnight. Pain controlled. Tolerating diet. No N/V. Ambulating w. out difficulty. Objective - Vital Signs/Intake and Output Vital Signs (last 24 hours): Temp Pulse Resp BP Pulse Ox 97.9 F 74 20 102/65 98 01/17/18 05:00 01/17/18 05:00 01/17/18 05:00 01/17/18 05:00 01/17/18 05:00 Intake and Output: 01/17/18 01/17/18 06:59 18:59 Intake Total 2400 Balance 2400 - Medications Medications: Current Medications Sodium Chloride (Sodium Chloride 0.9%) 1,000 mls @ 75 mls/hr IV .[id number] WILDER Stop: 01/17/18 16:41 Last Admin: 01/17/18 05:21 Dose: 75 mls/hr Lactated Ringer's (Lactated Ringer's) 1,000 mls @ 100 mls/hr IV .Q10H WILDER - Labs Labs: 01/16/18 06:30 01/16/18 10:46 PT 13.4 Seconds (9.8-13.1) H 01/16/18 06:30 INR 1.2 01/16/18 06:30 APTT 31.8 Seconds (25.6-37.1) 01/16/18 06:30 - Constitutional Appears: Non-toxic, No Acute Distress - Head Exam Head Exam: ATRAUMATIC, NORMOCEPHALIC - Eye Exam Eye Exam: EOMI - ENT Exam ENT Exam: Mucous Membranes Moist - Neck Exam Neck Exam: Full ROM - Respiratory Exam Respiratory Exam: NORMAL BREATHING PATTERN. absent: Accessory Muscle Use, Respiratory Distress - GI/Abdominal Exam GI & Abdominal Exam: Soft, Tenderness (jhonathan-incisional ). absent: Distended, Firm, Guarding, Rigid, Rebound - Extremities Exam Extremities Exam: absent: Calf Tenderness, Pedal Edema - Neurological Exam Neurological Exam: Alert, Awake, Oriented x3 - Psychiatric Exam Psychiatric exam: Normal Affect, Normal Mood Assessment and Plan - Assessment and Plan (Free Text) Assessment: 27F w. appendicitis, s/p lap appy, POD#1 -clear for D/C from surgical standpoint -Tylenol/Advil for pain -No heavy lifting >15-20lbs for 4 weeks -F/U in office wPrabhu Abdi in 1-2 weeks -d/w attending Isabella PGY4
[2018-01-17 17:06] VITALS: BP 95/55; PULSE 79; RESP 18; TEMP 98.7
--- NOTE | 2018-01-17 21:16 | OP ---
PROCEDURE DATE: 01/16/2018 PREOPERATIVE DIAGNOSES: 1. Acute appendicitis and leukocytosis. 2. Abdominal pain. POSTOPERATIVE DIAGNOSES: 1. Acute suppurative appendicitis. 2. Seropurulent pelvic collection. PROCEDURES DONE: 1. Laparoscopic appendectomy. 2. Laparoscopic drainage of pelvic collection. SURGEON: Ino Abdi MD REMEDIATION PROJECT ENGINEER: Shayan Mason DO, PGY-4 resident ANESTHESIA: General endotracheal tube anesthesia. ESTIMATED BLOOD LOSS: Around 10 mL. DRAINS: None. SPECIMENS: The appendix was sent for the pathology. COMPLICATIONS: None. INTRAOPERATIVE FINDINGS: The patient had acute suppurative appendicitis with seropurulent pelvic collection. DESCRIPTION OF PROCEDURE: On intraoperative steps, this is a 27-year-old female who was diagnosed with acute appendicitis and leukocytosis. The patient was consented for the laparoscopic appendectomy, brought to the OR, placed supine on the operating table. After induction of the anesthesia, the abdomen was prepped and draped in the usual sterile fashion. Supraumbilical transverse incision was made after incising the skin, subcutaneous tissue, and the fascia. the Ezequiel port was placed, pneumo was created. The 5-mm port was placed in suprapubic region. The 12-mm port was placed in the left lower quadrant. Grasper and dissector were introduced. The patient had omental adhesions in the appendix that was removed. Appendix was isolated. Mesoappendix was resected with Harmonic scalpel. Base of the appendix was resected with GONZALO. The appendix was taken into an EndoCatch bag, taken out through the umbilical port site and off the table for the pathology. There was a proper hemostasis. Now, the patient had a pelvic collection that was drained. Suction irrigation of the pelvic, periappendicular, perihepatic area was done. After proper hemostasis, all the ports were taken out under vision. Pneumo was deflated. The umbilical port site was closed in two layers, the fascia with 0 Vicryl interrupted suture and the skin with a 4-0 Monocryl. Dry sterile dressing was applied. The patient tolerated the procedure well. Count of instrument and gauze was correct. There was no apparent complication. The patient was sent to the postanesthesia care in stable condition. Ino Abdi MD [facility] # [id number]
--- NOTE | 2018-01-18 09:51 | CP.PCM.DIS ---
Provider - Provider Date of Admission: 01/15/18 21:57 Attending physician: Joaquin Stevenson MD Time Spent in preparation of Discharge (in minutes): 30 Diagnosis - Discharge Diagnosis (1) Appendicitis Status: Acute (2) Colitis Status: Acute Hospital Course - Lab Results Lab Results: Most Recent Lab Values WBC 6.8 K/uL (4.8-10.8) 01/16/18 06:30 RBC 3.60 Mil/uL (3.80-5.20) L 01/16/18 06:30 Hgb 11.9 g/dL (12.0-16.0) L 01/16/18 06:30 Hct 34.6 % (34.0-47.0) 01/16/18 06:30 MCV 96.0 fl (81.0-99.0) 01/16/18 06:30 MCH 32.9 pg (27.0-31.0) H 01/16/18 06:30 MCHC 34.3 g/dL (33.0-37.0) 01/16/18 06:30 RDW 12.3 % (11.5-14.5) 01/16/18 06:30 Plt Count 253 K/uL (130-400) 01/16/18 06:30 MPV 8.3 fl (7.2-11.7) 01/16/18 06:30 Neut % (Auto) 53.6 % (50.0-75.0) 01/16/18 06:30 Lymph % (Auto) 30.6 % (20.0-40.0) 01/16/18 06:30 Barber % (Auto) 10.4 % (0.0-10.0) H 01/16/18 06:30 Eos % (Auto) 5.1 % (0.0-4.0) H 01/16/18 06:30 Baso % (Auto) 0.3 % (0.0-2.0) 01/16/18 06:30 Neut # (Auto) 3.6 K/uL (1.8-7.0) 01/16/18 06:30 Lymph # (Auto) 2.1 K/uL (1.0-4.3) 01/16/18 06:30 Barber # (Auto) 0.7 K/uL (0.0-0.8) 01/16/18 06:30 Eos # (Auto) 0.3 K/uL (0.0-0.7) 01/16/18 06:30 Baso # (Auto) 0.0 K/uL (0.0-0.2) 01/16/18 06:30 PT 13.4 Seconds (9.8-13.1) H 01/16/18 06:30 INR 1.2 01/16/18 06:30 APTT 31.8 Seconds (25.6-37.1) 01/16/18 06:30 Sodium 139 mmol/l (132-148) 01/16/18 10:46 Potassium 3.7 MMOL/L (3.6-5.0) 01/16/18 10:46 Chloride 108 mmol/L (98-107) H 01/16/18 10:46 Carbon Dioxide 24 mmol/L (22-30) 01/16/18 10:46 Anion Gap 11 (10-20) 01/16/18 10:46 BUN 4 mg/dl (7-17) L 01/16/18 10:46 Creatinine 0.5 mg/dl (0.7-1.2) L 01/16/18 10:46 Est GFR ( Amer) > 60 01/16/18 10:46 Est GFR (Non-Af Amer) > 60 01/16/18 10:46 Random Glucose 96 mg/dL (65-105) 01/16/18 10:46 Calcium 8.3 mg/dL (8.4-10.2) L 01/16/18 10:46 Phosphorus 3.6 mg/dl (2.5-4.5) 01/16/18 06:30 Magnesium 1.8 MG/DL (1.6-2.3) 01/16/18 06:30 Total Bilirubin 0.4 mg/dl (0.2-1.3) 01/16/18 06:30 AST 21 U/L (14-36) 01/16/18 06:30 ALT 33 U/L (9-52) 01/16/18 06:30 Alkaline Phosphatase 49 U/L (38-126) 01/16/18 06:30 Total Protein 6.6 G/DL (6.3-8.2) 01/16/18 06:30 Albumin 3.4 g/dL (3.5-5.0) L 01/16/18 06:30 Globulin 3.2 gm/dL (2.2-3.9) 01/16/18 06:30 Albumin/Globulin Ratio 1.1 (1.0-2.1) 01/16/18 06:30 - Hospital Course Hospital Course: S/P APPENDECTOMY CLINICALLY IMPROVED Discharge Exam - Head Exam Head Exam: ATRAUMATIC, NORMOCEPHALIC - Eye Exam Eye Exam: EOMI, Normal appearance, PERRL Pupil Exam: NORMAL ACCOMODATION, PERRL - GI/Abdominal Exam GI & Abdominal Exam: Normal Bowel Sounds, Tenderness Additional comments: POST OP PAIN - Rectal Exam Rectal Exam: NORMAL INSPECTION - Neurological Exam Neurological exam: Alert, CN II-XII Intact, Normal Gait, Oriented x3, Reflexes Normal - Psychiatric Exam Psychiatric exam: Normal Affect, Normal Mood - Skin Skin Exam: Dry, Intact, Normal Color, Warm Discharge Plan - Follow Up Plan Condition: GOOD Disposition: HOME/ ROUTINE Instructions: Appendectomy, Laparoscopic Surgery Additional Instructions: may take tylenol or advil as needed for pain Referrals: Ino Abdi MD [Staff Provider] -
== END 2018-01-17 18:50 | disposition home or self-care (01) | DRG 883 ==
LOC: H.ER 16:42 → H.ERHOLD 21:57 → H.PEDS 22:52
PROVIDERS: ADMIT Internal Medicine Pulmonary Disease; ATTEND Internal Medicine Pulmonary Disease
PROC: 0W9J4ZZ Drainage of Pelvic Cavity, Percutaneous Endoscopic Approach (ICD-10-PCS; 2018-01-16)
PROC: 0DTJ4ZZ Resection of Appendix, Percutaneous Endoscopic Approach (ICD-10-PCS; principal; 2018-01-16 12:30)
DX: K35.80 Unspecified acute appendicitis (principal); E87.6 Hypokalemia; Z88.1 Allergy status to other antibiotic agents; Z88.0 Allergy status to penicillin; K52.9 Noninfective gastroenteritis and colitis, unspecified